=== PATIENT | male | born 1935 | race Caucasian/White ===

== ENCOUNTER 2018-04-10 20:21 | Emergency (ER) | payer MEDICARE ==
[~2018-04-10] VITALS: Ht 167.6 cm; Wt 70.0 kg
[2018-04-10 20:28] VITALS: BP 112/67
[2018-04-10] MEDS ORDERED: HYDROcodone/APAP 5/325 TABLET PO STA (21:10)
[2018-04-10 21:40] LABS: BASOPHILS # (AUTO) 0.06 x10^3/uL (0-0.1); BASOPHILS % (AUTO) 1 % (0-1); EOSINOPHILS # (AUTO) 0.29 x10^3/uL (0-0.4); EOSINOPHILS % (AUTO) 3 % (1-7); LYMPHOCYTES # (AUTO) 1.87 x10^3/uL (1-3.4); LYMPHOCYTES % (AUTO) 17 % (22-44); MD NO; MEAN CORPUSCULAR HEMOGLOBIN 33.2 pg (27.5-34.5); MEAN CORPUSCULAR HGB CONC 33.8 g/dL (33.2-36.2); MEAN CORPUSCULAR VOLUME 98.1 fL (81-97); MEAN PLATELET VOLUME 7.5 fL (7.4-10.4); MONOCYTES # (AUTO) 0.85 x10^3/uL (0.2-0.8); MONOCYTES % (AUTO) 8 % (2-9); NEUTROPHILS # (AUTO) 7.69 x10^3/uL (1.8-6.8); NEUTROPHILS % (AUTO) 71 % (42-75); PLATELET COUNT 291 x10^3/uL (130-400); RED BLOOD COUNT 3.79 x10^6/uL (4.38-5.82); RED CELL DISTRIBUTION WIDTH 13.3 % (9.4-14.8)
[2018-04-10 21:52] LABS: ALBUMIN 3.5 g/dL (3.4-5.0); ANION GAP 10 mmol/L (5-15); CALCIUM 8.3 mg/dL (8.5-10.1); CHLORIDE 111 mmol/L (98-107)
[2018-04-10 21:56] LABS: ALANINE AMINOTRANSFERASE 22 U/L (12-78); ALKALINE PHOSPHATASE 85 U/L (45-117); BILIRUBIN,TOTAL 0.3 mg/dL (0.2-1.0); CREATININE 1.32 mg/dL (0.7-1.3)
== END 2018-04-10 23:26 | disposition home or self-care (01) ==
LOC: ED 23:10
DX: M25.461 Effusion, right knee (principal); M23.51 Chronic instability of knee, right knee; G89.29 Other chronic pain; M54.9 Dorsalgia, unspecified; M81.0 Age-related osteoporosis without current pathological fracture; X50.1XXA Overexertion from prolonged static or awkward postures, initial encounter; Y93.89 Activity, other specified; Y99.8 Other external cause status; Y92.009 Unspecified place in unspecified non-institutional (private) residence as the place of occurrence of the external cause
CPT/HCPCS: 36415; 72110; 80053; 85025; 99285

== ENCOUNTER 2020-08-18 15:06 | Inpatient (IN) | payer MEDICARE ==
[~2020-08-18] VITALS: Ht 170.2 cm; Wt 66.0 kg
--- NOTE | 2020-08-18 15:29 | NUR ---
Code Cardiac called @ 1503 Cardiology paged @ 150 second call @ 0167 3rd call @ [id number] Abel responded @ [id number]
--- NOTE | 2020-08-18 15:30 | NUR ---
Late entry due to pt care: Pt c/o substernal CP x1 hour, STEMI on EKG. Pt rates pain 5/10 currently, pain improved after NTG given by EMS [employer] LEGAL ASSISTANT. Pt speaking in full sentences, resp even and unlabored. Dr. Dowell at bedside to evaluate pt.
[2020-08-18] MEDS ORDERED: TICAGRELOR 90 MG TABLET ONE (15:32)
[2020-08-18] MEDS ORDERED: LIDOCAINE 2%, 20ML ONE (15:32)
[2020-08-18] MEDS ORDERED: MIDAZOLAM 1 MG/ML, 5ML ONE (15:32)
[2020-08-18] MEDS ORDERED: VERAPAMIL 2.5 MG/ML, 2ML ONE (15:32)
[2020-08-18] MEDS ORDERED: HEPARIN 1,000 UNITS/ML, 10ML ONE (15:32)
[2020-08-18] MEDS ORDERED: FENTANYL PF 100 MCG/2ML ONE (15:32)
[2020-08-18] MEDS ORDERED: BIVALIRUDIN 250 MG ONE (15:32)
[2020-08-18 15:34] LABS: BASOPHILS # (AUTO) 0.04 x10^3/uL (0-0.1); BASOPHILS % (AUTO) 1 % (0-1); EOSINOPHILS # (AUTO) 0.11 x10^3/uL (0-0.4); EOSINOPHILS % (AUTO) 2 % (1-7); LYMPHOCYTES # (AUTO) 2.26 x10^3/uL (1-3.4); LYMPHOCYTES % (AUTO) 32 % (22-44); MD NO; MEAN CORPUSCULAR HEMOGLOBIN 33.4 pg (27.5-34.5); MEAN PLATELET VOLUME 7.6 fL (7.4-10.4); MONOCYTES # (AUTO) 0.73 x10^3/uL (0.2-0.8); MONOCYTES % (AUTO) 11 % (2-9); NEUTROPHILS # (AUTO) 3.87 x10^3/uL (1.8-6.8); NEUTROPHILS % (AUTO) 55 % (42-75); PLATELET COUNT 292 x10^3/uL (130-400); RED BLOOD COUNT 3.82 x10^6/uL (4.38-5.82); RED CELL DISTRIBUTION WIDTH 12.8 % (9.4-14.8)
[2020-08-18] MEDS ORDERED: NITROGLYCERIN 30 MCG/ML, 20ML VIAL ONE (15:35)
[2020-08-18 15:44] LABS: INTERNATIONAL NORMALIZED RATIO 0.99 (0.93-1.1); PROTHROMBIN TIME 10.2 Seconds (9.6-11.5)
[2020-08-18] MEDS ORDERED: TAMS-11 PO (15:49)
[2020-08-18] MEDS ORDERED: CITA20TA9 PO (15:49)
[2020-08-18 15:52] LABS: TROPONIN I 0.159 ng/mL (0.000-0.045)
[2020-08-18] MEDS ORDERED: CLOPIDOGREL 300 MG TABLET ONE (16:04)
[2020-08-18] MEDS ORDERED: BIVALIRUDIN 250 MG in SODIUM CHLORIDE 0.9% 50 ML IV SCH (16:15)
[2020-08-18] MEDS: SODIUM CHLORIDE 0.9% 1,000 ML IV SCH (16:40)
[2020-08-18] MEDS ORDERED: MORPHINE SULFATE 4 MG/ML, 1ML IVPush ONE (20:00)
[2020-08-18] MEDS: ATORVASTATIN 40 MG TABLET PO SCH (20:13)
[2020-08-18] MEDS ORDERED: METOPROLOL TARTRATE 25 MG TAB PO ONE (21:00)
[2020-08-18] MEDS: NITROGLYCERIN 0.4 MG/SPRAY SL PRN ×3 (22:57→23:08)
[2020-08-19] MEDS ORDERED: MORPHINE SULFATE 4 MG/ML, 1ML IVPush ONE
[2020-08-19] MEDS: SODIUM CHLORIDE 0.9% 1,000 ML IV SCH ×2 (00:15→08:15)
[2020-08-19 04:00] VITALS: BP 100/59
[2020-08-19 04:11] LABS: ANION GAP 6 mmol/L (5-15); CHLORIDE 113 mmol/L (98-107); CREATININE 0.98 mg/dL (0.7-1.3)
[2020-08-19 04:37] LABS: CHOL/HDL RATIO 2.4; LDL/HDL RATIO 1.2 (0.5-3.0)
[2020-08-19] MEDS: CLOPIDOGREL 75 MG TABLET PO SCH (08:40)
[2020-08-19] MEDS: TAMSULOSIN 0.4 MG CAP.ER.24H PO SCH (08:40)
[2020-08-19] MEDS: ASPIRIN 81 MG TABLET EC PO SCH (08:40)
[2020-08-19] MEDS: CITALOPRAM 20 MG TABLET PO SCH (08:40)
[2020-08-19 13:16] VITALS: BP 99/62
[2020-08-19 21:06] VITALS: BP 115/68
[2020-08-19] MEDS: ATORVASTATIN 40 MG TABLET PO SCH (21:10)
[2020-08-20 03:10] VITALS: BP 119/73
[2020-08-20 06:50] VITALS: BP 130/75
[2020-08-20] MEDS: CLOPIDOGREL 75 MG TABLET PO SCH (08:33)
[2020-08-20] MEDS: TAMSULOSIN 0.4 MG CAP.ER.24H PO SCH (08:34)
[2020-08-20] MEDS: CITALOPRAM 20 MG TABLET PO SCH (08:34)
[2020-08-20] MEDS: ASPIRIN 81 MG TABLET EC PO SCH (08:34)
[2020-08-20] MEDS: LOSARTAN 25MG TABLET PO SCH (11:23)
[2020-08-20 12:19] VITALS: BP 133/73
[2020-08-20 20:39] VITALS: BP 113/69
[2020-08-20] MEDS: ATORVASTATIN 40 MG TABLET PO SCH (20:48)
[2020-08-21 01:43] VITALS: BP 122/78
[2020-08-21 05:14] LABS: ANION GAP 6 mmol/L (5-15); CALCIUM 8.3 mg/dL (8.5-10.1); CHLORIDE 110 mmol/L (98-107); CREATININE 0.92 mg/dL (0.7-1.3)
[2020-08-21 07:37] VITALS: BP 127/81
[2020-08-21] MEDS: TAMSULOSIN 0.4 MG CAP.ER.24H PO SCH (07:59)
[2020-08-21] MEDS: CLOPIDOGREL 75 MG TABLET PO SCH (07:59)
[2020-08-21] MEDS: CITALOPRAM 20 MG TABLET PO SCH (07:59)
[2020-08-21] MEDS: ASPIRIN 81 MG TABLET EC PO SCH (08:00)
[2020-08-21] MEDS: LOSARTAN 25MG TABLET PO SCH (08:00)
[2020-08-21] MEDS ORDERED: LOSA25TA25 PO (10:04)
[2020-08-21] MEDS ORDERED: CLOP75TA PO (10:04)
[2020-08-21] MEDS ORDERED: ASPI81TA45 PO (10:04)
[2020-08-21] MEDS ORDERED: ATOR40TA78 PO (10:04)
== END 2020-08-21 11:45 | disposition home or self-care (01) | DRG 246 ==
LOC: ED 16:00 → CCU 16:54 → 5SO 08-19 13:00 → DCLOUNGE 08-21 11:35
PROVIDERS: ADMIT Internal Medicine Cardiovascular Disease; ATTEND Internal Medicine Cardiovascular Disease
PROC: 027034Z Dilation of Coronary Artery, One Artery with Drug-eluting Intraluminal Device, Percutaneous Approach (ICD-10-PCS; principal; 2020-08-18)
PROC: 4A023N7 Measurement of Cardiac Sampling and Pressure, Left Heart, Percutaneous Approach (ICD-10-PCS; 2020-08-18)
PROC: B2151ZZ Fluoroscopy of Left Heart using Low Osmolar Contrast (ICD-10-PCS; 2020-08-18)
PROC: B2111ZZ Fluoroscopy of Multiple Coronary Arteries using Low Osmolar Contrast (ICD-10-PCS; 2020-08-18)
DX: I21.09 ST elevation (STEMI) myocardial infarction involving other coronary artery of anterior wall (principal); I50.21 Acute systolic (congestive) heart failure; H91.90 Unspecified hearing loss, unspecified ear; D53.9 Nutritional anemia, unspecified; E78.5 Hyperlipidemia, unspecified; R00.1 Bradycardia, unspecified; F41.9 Anxiety disorder, unspecified; I07.1 Rheumatic tricuspid insufficiency; I25.5 Ischemic cardiomyopathy; Z20.828 Contact with and (suspected) exposure to other viral communicable diseases; I27.20 Pulmonary hypertension, unspecified; N40.0 Benign prostatic hyperplasia without lower urinary tract symptoms; I25.2 Old myocardial infarction; Z87.891 Personal history of nicotine dependence; Z90.49 Acquired absence of other specified parts of digestive tract; I11.0 Hypertensive heart disease with heart failure
CPT/HCPCS: 36415; 71045; 80047; 80048; 80061; 84484; 85025; 85520; 85610; 85730; 87081; 87635; 93005; 93306; 93458; 99156; 99157; 99291; C1760; C1769; C1894; C9600; G0378; J0583; J1644; J2250; J3010; C1725; C1874; C1887; J2270; J7030; Q9967